=== PATIENT | female | born 2005 | race African-American/Black ===

== ENCOUNTER 2023-11-28 22:35 | Emergency (ER) | payer OTHER ==
[~2023-11-28] VITALS: Ht 157.5 cm; Wt 64.0 kg
[2023-11-28 22:59] VITALS: BP 135/79; PULSE 92; RESP 18; TEMP 98; O2SAT 100
== END 2023-11-29 02:00 | disposition left against medical advice (07) ==
LOC: ER 22:35
DX: Z76.89 Persons encountering health services in other specified circumstances (principal); Z53.21 Procedure and treatment not carried out due to patient leaving prior to being seen by health care provider
CPT/HCPCS: 99281